=== PATIENT | male | born 1950 | race Caucasian/White ===

== ENCOUNTER 2024-10-03 12:59 | Outpatient (OUT) | payer MEDICARE, SELFPAY ==
--- NOTE | 2024-10-03 18:12 | P.WCHP_ITS ---
Wound Care H&P: HPI History of Present Illness Narrative: The patient is a 74-year-old gentleman with history of type 2 diabetes, last hemoglobin A1c was 7.0. He presents today for routine nail care. He has no complaints of pain in his feet at this time. Exam 2 Narrative: Exam Narrative: Derm: Skin is diffusely dry. Toenails 1 through 10 are elongated, thickened, and mycotic. No ulcerative or preulcerative lesions are noted. Vascular: DP and PT pulses are 2/4 bilaterally. Capillary refills less than 3 seconds bilaterally. Varicosities are present in both feet and ankles. Toes are cool to the touch. Digital hair is absent bilaterally. Neuro: Protective sensation is intact in 5/5 areas tested on each foot. Vibratory sensation is intact on the right and negative on the left. Deep tendon reflexes to the Achilles are absent bilaterally. Musculoskeletal: No gross deformity, no pain with palpation Assessment and Plan Assessment and Plan (1) Tinea unguium: (2) Nail dystrophy: (3) Disorder of nail due to another disorder: Plan Routine nail care performed. Follow-up in 3 months Acute Procedures Podiatry Nail Debridement Class B Findings Advanced trophic changes as evidenced by any three of the following: decreased hair growth and skin texture (thin or shiny) Class C Findings Claudication: No Temperature changes: Yes Edema: Yes Nail debridement paresthesia (abnormal spontaneous sensations in the feet): No Burning: No Qualifies If: Qualifiers If:: A patient qualifies for nail debridement if they have: 1 class A finding (Q7) 2 class B findings (Q8) OR 1 class B & 2 class C findings in addition to a primary condition (Q9) Nail Procedure Nail Procedure Time out: Yes Nail procedure: other (Toenail debridement 1 through 10) Number of affected nails: 10 Location (toes): left and right Procedure successful: Yes Patient tolerated procedure: well and no complications Additional comments: Toenails 1 through 10 were sharply debrided with nail nippers without incident
== END 2024-10-03 13:00 | disposition home or self-care (01) ==
LOC: WC 13:04
PROVIDERS: Visit Provider Physician Assistant
DX: B35.1 Tinea unguium (principal); L60.3 Nail dystrophy; E11.9 Type 2 diabetes mellitus without complications; L60.2 Onychogryphosis; L62 Nail disorders in diseases classified elsewhere
CPT/HCPCS: 11721

== ENCOUNTER 2025-01-02 13:57 | Outpatient (OUT) | payer MEDICARE, SELFPAY ==
--- OUTSIDE RECORDS SUMMARY | 2024-04-01 09:00 | XMS_ITS ---
Author Organization The [facility] in [place] Address [address] [place] [address] Care Team Providers Care Front Office Clerk Name Role Phone Taejessica John CASTELLANOS Primary Care Provider Unavail Mehnaz Lora Unavailable [phone] Allergies No Known Allergies REASON FOR VISIT nail care with Lesley Medications Medication SIG (Take, Route, Frequency, Duration) Notes Start Date End Date Status Simvastatin 40 MG 1 tablet in the even ing Orally Once a day Active Minocycline HCl 50 MG 1 capsule Orally O nce a day Active metFORMIN HCl 1000 MG 1 tablet with a me al Orally BID Active Lisinopril-hydroCHLOROthiaz claire 10-12.5 MG 1 tablet Orally Once a day Active Januvia 100 MG 1 tablet Orally Once a day Active Social History Tobacco Use: Social History Observation Description Date Details (start date - stop date) Never Smoker NA - NA Tobacco Use/Smoking Question Answer Notes Patient is a nonsmoker Vital Signs Temperature 98.4 degrees Fahrenheit 04/01/20 24 Heart Rate 82 /min 04/01/2024 Height 76 in 04/01/2024 Oximetry 98 % 04/01/2024 Encounters Encounter Location Date Provider Diagnosis [facility] (PODIATRY) [address] [place] [address] [place] [address] 04/01/2024 Mehnaz Horton Type 2 diabetes mellitus with unspecified complications E11.8 Assessments Encounter Date Diagnosis (ICD Code) Assessment Notes Treatment Notes Treatment Clinical Notes Section Notes 04/01/2024 Type 2 diabetes mellitus with unspecified complications (ICD-10 - E11.8) Plan Of Treatment No Information Progress Notes * Juan Antonio SCHNEIDERDOB:1950 (74 yo M)Acc No.[id number]:04/01/2024 Nurse Visit Patient: Juan Antonio OBRIEN Provider: Suzan Horton PA-C :1950 A ge:74 Y S ex:Male Date:04/01/2024 Address:[address], [place], [id number] Pcp:John Bosch, DO Check In:01:01 PM ESTCheck O ut:01:22 PM EST Subjective: * Chief Complaints: * n ail care with Lesley * HPI: G eneral: Patient in office today for nail care. Nails 1-10 were trimmed and filed down to his liking. States, nails already feel better . * Active Problem List E11.8 Type 2 diabetes bobby itus with unspecified complications Modified On:07/18/2023W/U Status:confirmed * Medical History: * Surgical History: r ight knee replacement 2022 * Hospitalization/Major Diagno stic Procedure: N o Hospitalization History. * Family History: declined. * Social History: T obacco Use: T obacco Use/Smoking P atient is a n onsmoker * Medications: T akingJanuvia(SITagliptin Phosphate) 100 MG Tablet 1 tablet Orally Once a day Lisinopril-hydroCHLOROthiazide 10-12.5 MG Tablet 1 tablet Orally Once a day metFORMIN HCl 1000 MG Tablet 1 tablet with a meal Orally BID Minocycline HCl 50 MG Capsule 1 capsule Orally Once a day Simvastatin 40 MG Tablet 1 tablet in the evening Orally Once a day Taking Januvia(SITagliptin Phosphate) 100 MG Tablet 1 tablet Orally Once a day Taking Lisinopril-hydroCHLOROthiazide 10-12.5 MG Tablet 1 tablet Orally Once a day Taking metFORMIN HCl 1000 MG Tablet 1 tablet with a meal Orally BID Taking Minocycline HCl 50 MG Capsule 1 capsule Orally Once a day Taking Simvastatin 40 MG Tablet 1 tablet in the evening Orally Once a day * Allergies: N .K.D.A.no[Allergies Verified] Objective: * Vitals: H t: 76 in, Temp:98.4F, HR:82/min, Pain scale:01-10, Oxygen sat %:98%, Ht-cm: 193.04 cm. Assessment: * Assessment: 1. T ype 2 diabetes mellitus with unspecified complications - E11.8 (Primary) Plan: * Treatment: * Procedure Codes: * * Sign off status: Completed Visit Status: Ignacio HK (Check Out) true * Provider: Suzan Horton PA-C Date: 1 06/01/2023 [facility]Falind[facility]/eTransmitting on: 0 01/02/2025 02:01 PM EDT History and Physical Notes * HPI (History of Present Illness) Category Sub-Category Detail Notes Category Not es General Patient in offi ce today for nail care. Nails 1-10 were trimmed and filed down to his liking. States, nails already feel better .
--- OUTSIDE RECORDS SUMMARY | 2024-07-04 09:00 | XMS_ITS ---
Author Organization The [facility] in [place] Address [address] [place] [address] Care Team Providers Care Guitar Repairer Name Role Phone Taejessica John CASTELLANOS Primary Care Provider Unavail able Mehnaz Horton Unavailable [phone] REASON FOR VISIT nail care for jaida Medications Medication SIG (Take, Route, Frequency, Duration) Notes Start Date End Date Status Januvia 100 MG 1 tablet Orally Once a day Active metFORMIN HCl 1000 MG 1 tablet with a me al Orally BID Active Lisinopril-hydroCHLOROthiaz claire 10-12.5 MG 1 tablet Orally Once a day Active Simvastatin 40 MG 1 tablet in the even ing Orally Once a day Active Minocycline HCl 50 MG 1 capsule Orally O nce a day Active Social History Tobacco Use: Social History Observation Description Date Details (start date - stop date) Never Smoker NA - NA Tobacco Use/Smoking Question Answer Notes Patient is a nonsmoker Vital Signs Temperature 98.2 degrees Fahrenheit 07/04/19 25 Heart Rate 78 /min 07/04/2024 Height 76 in 07/04/2024 Oximetry 99 % 07/04/2024 Encounters Encounter Location Date Provider Diagnosis [facility] (PODIATRY) [address] [place] [address] [place] [address] 07/04/2024 Mehnaz Horton Type 2 diabetes mellitus with unspecified complications E11.8 Assessments Encounter Date Diagnosis (ICD Code) Assessment Notes Treatment Notes Treatment Clinical Notes Section Notes 07/04/2024 Type 2 diabetes mellitus with unspecified complications (ICD-10 - E11.8) Plan Of Treatment No Information Progress Notes * Juan Antonio SCHNEIDERDOB:1950 (74 yo M)Acc No.[id number]:07/04/2024 Nurse Visit Patient: Juan Antonio OBRIEN Provider: Suzan Horton PA-C :1950 A ge:74 Y S ex:Male Date:07/04/2024 Address:[address], [place], [id number] Pcp:John Bosch, DO Check In:12:56 PM ESTCheck O ut:01:19 PM EST Subjective: * Chief Complaints: * N ail care for jaida * HPI: G eneral: Patient in office today for nail care. Nails 1-10 were trimmed and dremmled down to his liking. Nails were thickened and long. * Active Problem List E11.8 Type 2 [...] in the evening Orally Once a day Medication List reviewed and reconciled with the patientTaking Januvia(SITagliptin Phosphate) 100 MG Tablet 1 tablet Orally Once a day Taking Lisinopril-hydroCHLOROthiazide 10-12.5 MG Tablet 1 tablet Orally Once a day Taking metFORMIN HCl 1000 MG Tablet 1 tablet with a meal Orally BID Taking Minocycline HCl 50 MG Capsule 1 capsule Orally Once a day Taking Simvastatin 40 MG Tablet 1 tablet in the evening Orally Once a day Medication List reviewed and reconciled with the patient * Allergies: n o[Allergies Verified] Objective: * Vitals: H t: 76 in, Temp:98.2F, HR:78/min, Oxygen sat %:99%, Ht-cm: 193.04 cm. Assessment: * Assessment: 1. T ype 2 diabetes mellitus with unspecified complications - E11.8 (Primary) Plan: * Treatment: * Procedure Codes: * * Sign off status: Completed Visit Status: C HK (Check Out) true * Provider: Suzan Horton PA-C Date: 0 07/04/2024 [facility]/eTransmitting on: 0 01/02/2025 02:00 PM EDT History and Physical Notes * HPI (History of Present Illness) Category Sub-Category Detail Notes Category Not es General Patient in offi ce today for nail care. Nails 1-10 were trimmed and dremmled down to his liking. Nails were thickened and long.
--- OUTSIDE RECORDS SUMMARY | 2024-10-03 09:00 | XMS_ITS ---
Author Organization The [facility] in [place] Address [address] [place] [address] Care Team Providers Care Gas Fitter Apprentice Name Role Phone John Bosch DO Primary Care Provider Mehnaz Bearden Unavailable [phone] REASON FOR VISIT nail care Encounters Encounter Location Date Provider Diagnosis [facility] (PODIATRY) [address] [place] [address] [place] [address] 10/03/2024 Mehnaz Hortno Plan Of Treatment No Information Progress Notes * Juan Antonio SCHNEIDERDOB:1950 (74 yo M)Acc No.[id number]:10/03/2024 UNLOCKED PROGRESS NOTE Nurse Visit Patient: Juan Antonio OBRIEN Provider: Suzan Horton PA-C :1950 A ge:74 Y S ex:Male Date:10/03/2024 Address:[address], [facility] Pcp:John Bosch DO Subjective: * Chief Complaints: * 1 . Nail care. * Medical History: Objective: * Vitals: Assessment: Plan: * Treatment: * * Electronic signature of Rufino Horton PA-C on 01/02/2025 at 02:02 PM EDT Sign off status: Pending Visit Status: C ANC (Cancelled) * Provider: Suzan oHrton PA-C Date: 0 10/03/2024 Generated for Printi ng/Faxing/eTransmitting on: 0 01/02/2025 02:02 PM EDT
--- OUTSIDE RECORDS SUMMARY | 2025-01-02 14:00 | XMS_ITS | Encounter Summary ---
Author Organization [facility] Address [address] [place] [address] Phone Care Team Providers Care Belt Repairer Name Role Phone TaeJohn lopez Primary Care Provider +1- [phone] Pamela Weathers MD Unavailable Encounter Details Date Type Department Care Team (Late st Contact Info) Description 08/28/2024 Scanned Document [facility] [address] [place] [id number] Scanning, Generic Provider Social History Tobacco Use Types Packs/Day Years Used Date Smoking Tobacco: Never Assessed Sex and Gender Information Value Date Recorded Sex Assigned at Not on file Legal Sex Male 11:11 PM EST Gender Identity Not on file Sexual Orientation Not on file documented as of this encounter Plan of Treatment Upcoming Encounters Date Type Department Care Team (Latest Contact Info) Description 01/13/2025 1:00 PM EDT Office Visit [facility] [address] [facility] [address] [place] [address] [place] [address] [place] [address] 02/12/2025 12:00 PM EDT Hospital Encounter [facility] [address] [place] [phone] Pamela Weathers MD [address] [facility] Medical Office [place], [address] [place], [place] [id number] Syncope; Mobitz type 2 second degree heart block 02/12/2025 12:00 PM EDT - 02/12/2025 1:00 PM EDT Surgery [facility] [address] [place] [address] Pamela Weathers MD [address] [facility] Medical Office [facility], [address] [place] [address] PPM IMPLANT DUAL [70037 (CPT )] 03/28/2025 10:20 AM EDT Office Visit [facility] [address] [facility] [address] [place] [address] Pamela Weathers MD [address] [facility] Office [facility], [facility] [address] [place] [address] 06/12/2025 10:15 AM EST Office Visit [facility] [address] [facility] [address] [place] [address] Mal Lord MD [address] [facility] [address] [place] [address] documented as of this encounter Visit Diagnoses Not on filedocumented in this encounter Care Teams Belt Repairer Relationship Specialty Start Date End Date John Bosch DO [address] [facility] [place] [address] PCP - General Family Medicine 08/30/24 Pamela Weathers MD [address] [facility] Office [facility], [facility] [address] [place] [address] Registered Dietician Electrophysiology 10/24/24 documented as of this encounter
--- OUTSIDE RECORDS SUMMARY | 2025-01-02 14:00 | XMS_ITS | Encounter Summary ---
Author Organization [facility] Address [address] [place] [address] Phone Care Team Providers Care Information Assurance Engineer Name Role Phone TaeJohn lopez Primary Care Provider +1- [phone] Pamela Weathers MD Unavailable Encounter Details Date Type Department Care Team (Late st Contact Info) Description 08/30/2024 Scanned Document [facility] [address] [place] [phone] Scanning, Generic Provider Social History Tobacco Use [...] Description 01/13/2025 1:00 PM EDT Office Visit [facility] [address] [facility] [address] [place] [address] [place] [address] [place] [address] 02/12/2025 12:00 PM EDT Hospital Encounter [facility] [address] [place] [phone] Pamela Weathers MD [address] [facility] Medical Office [place], [address] [place], [place] [phone] Syncope; Mobitz type 2 second degree heart block 02/12/2025 12:00 PM EDT - 02/12/2025 1:00 PM EDT Surgery [facility] [address] [place] [facility] [place] [address] Pamela Weathers MD [address] [facility] Medical Office [facility], [address] [place] [address] PPM IMPLANT DUAL [[id number] (CPT )] 03/28/2025 10:20 AM EDT Office Visit [facility] [address] [facility] [address] [place] [address] Pamela Weathers MD [address] [facility] Office [facility], [facility] [address] [place] [address] 06/12/2025 10:15 AM EST Office Visit [facility] [address] [facility] [address] [place] [address] [place] Lord MD [address] [facility] [address] [place] [address] documented as of this encounter Visit Diagnoses Not on filedocumented in this encounter Care Teams Information Assurance Engineer Relationship Specialty Start Date End Date John Bosch DO [address] [facility] [place] [address] PCP - General Family Medicine 08/30/24 Pamela Weathers MD [address] [facility] Office [facility], [facility] [address] [place] [address] Library Media Technician Electrophysiology 10/24/24 documented as of this encounter
--- OUTSIDE RECORDS SUMMARY | 2025-01-02 14:01 | XMS_ITS | Clinical Summary ---
Author Organization [facility] Address [address] [place] [address] Phone Care Team Providers Care Director Strategic Account Management Name Role Phone Taejessica John Armando DO Primary Care Provider [phone] Pamela Weathers MD Unavailable Allergies No known active allergies Medications metFORMIN (Glucophage) 1,000 mg tablet 1 tablet (1,000 mg) 2 times daily (morning and late afternoon). 02/20/2024 Active pioglitazone (Actos) 15 mg tablet 1 tablet (15 mg) once daily. Active simvastatin (Zocor) 40 mg tablet Take 1 tablet (40 mg) by mouth once daily in the evening. Active Januvia 100 mg tablet 1 tablet (100 mg) once daily. Active lisinopriL-hydro chlorothiazide 10-12.5 mg tablet Take 1 tablet by mouth once daily. 02/20/2024 Active Active Problems Problem Noted Date Diagnosed Date Syncope 12/18/2024 Mobitz type 2 second degree heart block 12/19/19 25 Cough 11/14/2024 Atherosclerotic heart diseas e of [place] coronary artery without angina pectoris 11/14/2024 Agatston CAC score, >400 11/14/2024 Atrioventricular block, first degree 11/14/2024 Unspecified right bundle-branch block 11/14/2024 LVH (left ventricular hypertrophy) 11/14/2024 History of degenerative disc disease 11/14/2024 History of kidney stones 11/14/2024 History of surgery on arm 11/14/2024 Diastolic dysfunction, left ventricle 11/14/2024 Second degree heart block 10/03/2024 PVC (premature ventricular contraction) 10/04/19 25 Abnormal Holter exam 10/03/2024 Apnea 10/03/2024 Daytime somnolence 10/03/2024 Hypotension 09/05/2024 Syncope and collapse 09/05/2024 BMI 32.0-32.9,adult 09/05/2024 Past history of chewing tobacco use 09/05/2024 Dizziness 09/05/2024 Diabetes mellitus type II, non insulin dependent (Multi) 09/05/2024 Mixed hyperlipidemia 09/05/2024 Hx of right knee surgery 09/05/2024 Abnormal EKG 09/05/2024 Snoring 09/05/2024 Essential hypertension 09/05/2024 SOB (shortness of breath) on exertion 09/05/2024 Family history of colon cancer 09/05/2024 Resolved Problems Problem Noted Date Diagnosed Date Resolved Date Encounter for medication rev iew and counseling 10/29/2024 11/14/2024 Encounter to discuss treatment options 10/29/2024 11/14/2024 Encounter to establish care with new doctor 10/29/2024 11/14/2024 Encounter to establish care 09/05/2024 11/14/2024 Encounters Date Type Department Care Team Description 12/18/2024 11:00 AM EDT - 12/18/2024 12:30 PM EDT Surgery [address] [phone] Pamela Weathers MD EP Study [93229 (CPT )] 12/18/2024 8:52 AM EDT - 12/18/2024 4:30 PM EDT Hospital Encounter [address] [phone] Pamela Weathers MD Second degree heart block (Primary Dx); PVC (premature ventricular contraction); Abnormal Holter exam; Syncope and collapse Discharge Disposition: Home 12/18/2024 Prep for Procedure [address] [address] Elena Gamez, BLENDING MACHINE OPERATOR-FAST FOODS WORKER 12/18/2024 Prep for Procedure [address] [phone] Elena Gamez, BLENDING MACHINE OPERATOR-FAST FOODS WORKER Syncope (Primary Dx); Mobitz type 2 second degree heart block 12/18/2024 Orders Only [facility] [address] [facility] [address] [place] [address] Pamela Weathers MD Second degree heart block (Primary Dx) 12/18/2024 Travel 12/16/2024 Orders Only [facility] [address] [place] [address] Pamela Weathers MD 11/14/2024 10:00 AM EDT Office Visit [facility] [address] [facility] [address] [place] [address] Nahed Dickinson MD Syncope and collapse; Hypotension, unspecified hypotension type; Cough, unspecified type; Abnormal EKG; Atherosclerosis of [place] coronary artery of [place] heart without angina pectoris; Agatston CAC score, >400; Atrioventricular block, first degree; Unspecified right bundle-branch block; PVC (premature ventricular contraction); LVH (left ventricular hypertrophy); Diastolic dysfunction, left ventricle; Essential hypertension; Mixed hyperlipidemia; Diabetes mellitus type II, non insulin dependent (Multi); BMI 32.0-32.9,adult; Past history of chewing tobacco use; History of degenerative disc disease; History of kidney stones; History of surgery on arm; Syncope without other cardiovascular symptoms 11/14/2024 Travel 11/07/2024 Travel 10/29/2024 8:20 AM EDT Office Visit [facility] [address] [facility] [address] [place] [address] Pamela Weathers MD Second degree heart block (Primary Dx); PVC (premature ventricular contraction); Abnormal Holter exam; Mixed hyperlipidemia; Essential hypertension; BMI 32.0-32.9,adult; Syncope and collapse; History of tobacco use; Encounter for medication review and counseling; Encounter to discuss treatment options; Encounter to establish care with new doctor 10/29/2024 Travel 10/28/2024 Travel 10/27/2024 Travel 10/22/2024 4:34 PM EDT - 10/22/2024 11:59 PM EDT Hospital Encounter [address] [place] [phone] Encounter to establish care; Syncope and collapse; Hypotension, unspecified hypotension type; SOB (shortness of breath) on exertion; Essential hypertension; Mixed hyperlipidemia; Dizziness; Abnormal EKG; Snoring; Diabetes mellitus type II, non insulin dependent (Multi); Hx of right knee surgery; Family history of colon cancer; BMI 31.0-31.9,adult; History of tobacco use Discharge Disposition: Home 10/22/2024 Travel 10/21/2024 Travel 10/17/2024 Telephone [facility] [address] [facility] [address] [place] [address] Chrissy Rojas MA REFERRAL TO SLEEP MED. 10/09/[address] [address] Tamara Fajardo LPN Results 10/07/2024 Orders Only [facility] [address] [place] [address] Harjeet Lyn, 10/03/2024 10:00 AM EDT Office Visit [address] [address] Nahed Dickinson MD Syncope and collapse; Abnormal EKG; Second degree heart block; Hypotension, unspecified hypotension type; SOB (shortness of breath) on exertion; Essential hypertension; Daytime somnolence; Apnea; Mixed hyperlipidemia; Dizziness; Snoring; Diabetes mellitus type II, non insulin dependent (Multi); Hx of right knee surgery; Family history of colon cancer; PVC (premature ventricular contraction); Abnormal Holter exam; History of tobacco use; BMI 31.0-31.9,adult 10/03/2024 Telephone [facility] [address] [facility] [address] [place] [phone] Harjeet Lyn, 10/03/[address] [address] Barbara Barber LPN anesthesia 10/03/2024 Travel from Last 3 Months Immunizations Immunization Administration Dates Next Due Influenza, trivalent, adjuvanted 03/19/2024 Pneumococcal polysaccharide vaccine, 23-valent, age 2 years and older (PNEUMOVAX 23) 04/28/2015 Zoster vaccine, recombinant, adult (SHINGRIX) Family History Medical History Relation Name Comments Diabetes Father Pneumonia Father pacemaker Father Heart attack Mother Heart failure Mother Colon cancer Sister Relation Name Status Comments Father Mother Sister Social History Tobacco Use Types Packs/Day Years Used Date Smoking Tobacco: Never Smokeless Tobacco: Former Chew Comments:Quit in 1984 Alcohol Use Standard Drinks/Week Comments Yes 0 (1 standard drink = 0.6 oz pure alcohol) Maybe one or two beers per month Sex and Gender Information Value Date Recorded Sex Assigned at Not on file Legal Sex Male 11:11 PM EST Gender Identity Not on file Sexual Orientation Not on file Last Filed Vital Signs Vital Sign Reading Time Taken Comments Blood Pressure 171/79 12/18/2024 1:15 PM EDT Pulse 56 12/18/2024 1:15 PM EDT Temperature 36.2 C (97.2 F) 12/18/2024 9:16 AM EDT Respiratory Rate 18 12/18/2024 1:15 PM EDT Oxygen Saturation 99% 12/18/2024 11:56 AM EDT Inhaled Oxygen Concentration - - Weight 121 kg (267 lb 6.7 oz) 12/18/2024 9:16 AM EDT Height 193 cm (6' 4 ) 12/18/2024 9:16 AM EDT Body Mass Index 32.55 12/18/2024 9:16 AM EDT Plan of Treatment Upcoming Encounters Date Type Department Care Team (Latest Contact Info) Description 01/13/2025 1:00 PM EDT Office Visit [facility] [address] [place] [address] [place] [address] [place], [place] [id number] 02/12/2025 12:00 PM EDT Hospital Encounter [facility] [address] [place] [address] Pamela Weathers MD [address] [facility] Medical Office [place], [address] [place] [address] Syncope; Mobitz type 2 second degree heart block 02/12/2025 12:00 PM EDT - 02/12/2025 1:00 PM EDT Surgery [facility] [address] [place] [facility] [place] [address] Pamela Weathers MD [address] [facility] Medical Office [address] [place] [address] PPM IMPLANT DUAL [51660 (CPT )] 03/28/2025 10:20 AM EDT Office Visit [facility] [address] [facility] [address] [place] [address] Pamela Weathers MD [address] [facility] Office [facility], [address] [place] [address] 06/12/2025 10:15 AM EST Office Visit [facility] [address] [facility] [address] [place] [address] Nahed Dickinson MD [address] [facility] [address] [place] [address] Health Maintenance Due Date Last Done Comments CT Colonography 1950 Diabetes: Hemoglobin A1C 1950 Diabetes: Urine Protein Screening 1950 FIT-DNA (Cologuard) 1950 FIT 1950 Lipid Panel 1950 Medicare Annual Wellness Visit (AWV) 1950 Sigmoidoscopy 1950 MMR Vaccines (1 of 1 - Standard series) 1951 Diabetes: Retinopathy Screening 02/18/1960 Hepatitis C Screening 02/18/1968 DTaP/Tdap/Td Vaccines (1 - Tdap) 02/18/1972 RSV High Risk: (Elderly (60+) or Population) (1 - Risk 60-74 years 1-dose series) 2010 Pneumococcal Vaccine (2 of 2 - PCV) 04/28/2016 04/28/2015 Zoster Vaccines (2 of 2) 03/27/2019 01/30/2019 COVID-19 Vaccine ( season) 2024 03/02/2023, 10/11/2021, 03/29/2021, Additional history exists Influenza Vaccine (#1) 2025 03/19/2024 Colonoscopy 03/05/2034 03/05/2024 Colorectal Cancer Screening 03/05/2034 HIB Vaccines Aged Out No longer eligi ble based on patient's age to complete this topic HPV Vaccines Aged Out No longer eligi ble based on patient's age to complete this topic Hepatitis A Vaccines Aged Out No long er eligible based on patient's age to complete this topic Hepatitis B Vaccines Aged Out No long er eligible based on patient's age to complete this topic IPV Vaccines Aged Out No longer eligi ble based on patient's age to complete this topic Meningococcal Vaccine Aged Out No hugo priyank eligible based on patient's age to complete this topic Rotavirus Vaccines Aged Out No longer eligible based on patient's age to complete this topic Procedures Procedure Name Priority Date/Time Associated Diagnosis Comments EP STUDY Routine 12/18/2024 1:05 PM EDT Second degree heart block PVC (premature ventricular contraction) Abnormal Holter exam Syncope and collapse ECG 12-LEAD STAT 12/18/2024 9:40 AM EDT [facility] PROTHROMBIN TIME INR Routine 12/16/2024 8:07 AM EDT [facility] BASIC METABOLIC PANEL Routine 12/16/2024 8:07 AM EDT [facility] COMPLETE BLOOD COUNT AUTO DIFF Routine 12/16/2024 8:[address] CARDIAC SCORING WO IV CONTRAST Routine 10/22/2024 4:50 PM EDT Encounter to establish care Syncope and collapse Hypotension, unspecified hypotension type SOB (shortness of breath) on exertion Essential hypertension Mixed hyperlipidemia Dizziness Abnormal EKG Snoring Diabetes mellitus type II, non insulin dependent (Multi) Hx of right knee surgery Family history of colon cancer BMI 31.0-31.9,adult History of tobacco use [facility] LIPID PANEL Routine 10/07/2024 9:35 AM EDT [facility] CREATININE Routine 10/07/2024 9:35 AM EDT [facility] BLOOD UREA NITROGEN Routine 10/07/2024 9:35 AM EDT [facility] ELECTROLYTES Routine 10/07/2024 9:35 AM EDT [facility] COAGULATION PROFILE Routine 10/07/2024 9:35 AM EDT [facility] COMPLETE BLOOD COUNT AUTO DIFF Routine 10/07/2024 9:35 AM EDT ECG 12-LEAD Routine 10/03/2024 5:52 PM EDT Syncope and collapse SOB (shortness of breath) on exertion Abnormal Holter exam from Last 3 Months Results * EP STUDY (12/18/2024 1:05 PM EDT) Narrative [email or web address] - 12/18/2024 2:10 PM EDT .Electrophysiology Study Summary: Normal SA krys function. Abnormal AV krys function. Normal HIS Purkinje conduction. No VA conduction. No inducible SVT/VT in baseline state/in Isoproterenol state. Discharge: The patient left the EP laboratory in stable condition. Follow up: The patient will remain in the hospital overnight for telemetry monitoring and observation, with anticipated discharge on the following day. The patient should be alert for bleeding, swelling, or signs of infection. The patient should call the general matcher immediately if symptoms recur, or for any problems. The patient and family (friend via telephone with HIPAA consent) have been instructed accordingly. Recommend outpatient implantation of dual-chamber pacemaker. This was discussed in detail with the patient. All questions answered. Shared decision making performed. He agrees. Will order outpatient device implant and await preauthorization. Procedures: Complete electrophysiologic testing. CS recording. HIS recording. Vascular ultrasound guided access x 3. Patient history: Please refer to the detailed history and physical on the patient's medical chart. Procedure narrative: The risks, benefits, and alternatives to the procedure and sedation were explained to the patient, and informed consent was obtained. The patient was in the fasting state. A baseline ECG was recorded. Self-adhesive anterior-posterior defibrillation pads were applied. A ZOLL defibrillator was used for monitoring and the defibrillator waveform was set to biphasic. The patient was set up for continuous monitoring of surface 12 lead ECG and pulse oximetry. Blood pressure was monitored with automatic cuff measurements. The procedure was performed under IV conscious sedation. Bilateral groins were clipped, prepped with chlorhexidine, and draped in the usual sterile fashion. Local anesthesia: Subcutaneous tissues were infiltrated with Lidocaine 1% (10 ml) for local anesthesia in the right groin. Vascular ultrasound was used to guide vascular access. The right femoral was accessed x3 for insertion and positioning of diagnostic catheters using the modified Seldinger technique. Three sheaths were inserted. Electrophysiologic testing was performed with a multiple catheter technique. The catheters were placed under fluoroscopic guidance. A catheter was placed across the tricuspid valve to record the His bundle. A catheter was placed in the coronary sinus. Testing was done at baseline, without provocation. Measurements of basic intervals and refractory periods were obtained. Protocols included decremental pacing, burst pacing, and programmed stimulation. Stimuli were delivered at atrial, left atrial, right atrial, right ventricular apex, right ventricular outflow tract, and coronary sinus sites. HV 42 ms Corrected sinus node recovery time at PCL 1000 ms was 341 ms Wenckebach cycle length was 930 ms, associated with dizziness and feeling not right 2-1 AV block cycle length was 780 ms No tachycardia was induced with up to 3 extrastimuli from 2 pacing sites and at 2 pacing cycle lengths Sheaths were removed and hemostasis was obtained at the right femoral venous access sites with Vascade's. Manual compression was applied. Pressure dressing was applied. See signed procedural log and parameters. Vascular access and catheter properties: Entry site Sheath Locations Catheter Type Right femoral vein 6 Fr high RA , CS Librado Sci, quad new access Right femoral vein 6 Fr His-bundle (right side) Bots Sci, quad new access Right femoral vein 6 Fr RV apex and RV outflow tract Librado Sci, quad new access Complications: The patient tolerated the procedure without any complications or incident. us Pamela Weathers MD CV ELECTROPHYSIOLOGY PROCEDURES Final Result Performing Organization Address City/[facility]/ZIP Co de Phone Number [email or web address] * ECG 12 lead STAT (12/18/2024 9:40 AM EDT) Only the most recent of2 resultswithin the time period is included. Ventricular Rate 57 BPM MUSE Atrial Rate 57 BPM MUSE HI Interval 260 ms MUSE QRS Duration 124 ms MUSE QT Interval 472 ms MUSE QTC Calculation(Baze tt) 459 ms MUSE P [place] 71 degrees MUSE R [place] 33 degrees MUSE T [place] 44 degrees MUSE QRS Count 9 beats MUSE Q Onset 216 ms MUSE P Onset 86 ms MUSE P Offset 127 ms MUSE T Offset 452 ms MUSE QTC Fredericia 464 ms MUSE 12/18/2024 9:33 AM EDT 12/21/2024 11:05 AM EDT Narrative MUSE - 12/21/2024 11:06 AM EDT Sinus bradycardia with 1st degree AV block with Premature supraventricular complexes Right bundle branch block Abnormal ECG No previous ECGs available Confirmed by Nahed Dickinson ([id number]) on 12/21/2024 11:05:59 AM Procedure Note Nahed Dickinson MD - 12/21/2024 Sinus bradycardia with 1st degree AV block with Premature supraventricularcomplexes Right bundle branch block Abnormal ECG No previous ECGs available Confirmed by Nahed Dickinson ([id number]) on 12/21/2024 11:05:59 AM us Elena Winkler BLENDING MACHINE OPERATOR-FAST FOODS WORKER ECG ORDERABLES Final Re sult MUSE * (ABNORMAL) [facility] Complete Blood Count Auto Diff (12/16/2024 8:07 AM EDT) Only the most recent of2 resultswithin the time period is included. [facility] White Blood Count 4.4 4.1 - 10.5 [CFU]/mL [facility] Uncorrected WBC 4.4 4.1 - 10.5 10*3/uL [facility] Red Blood Count 4.21 3.90 - 5.60 10*6/uL [facility] Hemoglobin 13.5 13.0 - 17.0 g/dL [facility] Hematocrit 39.6 38.8 - 50.0 % [facility] Mean Corpuscular Volume 93.9 83.5 - 101 fL [facility] Mean Corpuscular Hemoglobin 32.0 27.5 - 35.2 pg [facility] Mean Corpuscular HGB Conc 34.0 32.5 - 35.6 g/dL [facility] Red Cell Distribution Width 12.8 12.0 - 14.8 % [facility] Platelet Count 144(L) 150 - 450 10*3/uL [facility] Mean Platelet Volume 10.0 6.6 - 10.1 fL [facility] Neutrophils % (Auto) 64.8 . % [facility] Lymphocytes % (Auto) 18.6 . % [facility] Monocytes % (Auto) 11.4 . % [facility] Eosinophils % (Auto) 4.9 . % [facility] Basophils % (Auto) 0.3 . % [facility] NRBC% 0.1 0 - 0.5 /100{WBC} [facility] Neutrophils # (Auto) 2.8 1.8 - 7.7 10*3/uL [facility] Lymphocytes # (Auto) 0.8(L) 1.00 - 4.8 10*3/uL [facility] Monocytes # (Auto) 0.5 0.0 - 0.8 10*3/uL [facility] Eosinophils # (Auto) 0.2 0.0 - 0.45 10*3/uL [facility] Basophils # (Auto) 0.0 0.0 - 0.2 10*3/uL [facility] Comment:PERFORMED BY:[place] [address] [address], [place] [phone] MEDICAL CARROLL CORMIER M.D. [facility] Whole blood specimen 12/16/2024 8:07 AM EDT Pamela Weathers MD LAB BLOOD ORDERABLES Final Resul t [facility] [address] [place] [address], [facility] [address] [place] [address] * (ABNORMAL) [facility] Basic Metabolic Panel (12/16/2024 8:07 AM EDT) [facility] Glucose 176(H) 70 - 100 mg/dL [facility] Comment:Random Glucose Refer ence Range is dependent on time and content of last meal. Glucose of more than 200 mg/dL in a nonstressed, ambulatory subject supports the diagnosis of Diabetes Mellitus. ADA recommended reference range NON-[facility] Blood Urea Nitrogen 18 7 - 25 mg/dL [facility] Creatinine 1.23 0.70 - 1.30 mg/dL [facility] ESTIMATED GFR >60.0 [facility] Sodium 138 136 - 145 mmol/L [facility] Potassium 4.4 3.5 - 5.1 mmol/L [facility] Chloride 104 98 - 107 mmol/L [facility] Carbon Dioxide 28.0 21.0 - 31.0 mmol/L [facility] Anion Gap 10.4 6.0 - 15.0 [facility] Calcium 8.8 8.6 - 10.3 mg/dL [facility] Comment:PERFORMED BY:[place] [address] [address] [place], [place] [phone] MEDICAL CARROLL CORMIER M.D. [facility] Plasma specimen or serum specimen or whole blood specimen 12/16/2024 8:07 AM EDT us Pamela Weathers MD LAB BLOOD ORDERABLES Final Resul t Performing Organization Address [facility] Co de Phone Number [facility] [address] [place] [address], [facility] [address] [place] [address] * [facility] Prothrombin Time INR (12/16/2024 8:07 AM EDT) [facility] Prothrombin Time 11.8 9.0 - 12.9 s [facility] Comment:A hematocrit value g reater than 55% may lead to inaccurate results in coagulation testing. Patients having hematocrit values >55% require a special collection tube for coagulation studies. Please contact the laboratory at [phone] for redraw instructions. NON-[facility] INR 1.0 [facility] Comment:INR Therapeutic Rang e A) Pre- and Peroperative OAT started two weeks before surgery. NOT HIP SURGERY: 1.5 - 2.5 HIP SURGERY: 2 - 3 B) Primary and secondary prevention of venous THROMBOSIS: 2 - 3 C) Active venous thrombosis, pulmonary embolism and prevention of recurrent venous thrombosis: 2 - 3 D) Prevention of arterial thromboembolism including patients with mechanical heart valves: 3 - 4.5PERFORMED BY:[facility] [place], [place] [address], [place] [phone] MEDICAL CARROLL CORMIER M.D. [facility] Platelet poor plasma specimen 12/16/2024 8:07 AM EDT us Pamela Weathers MD LAB BLOOD ORDERABLES Final Resul t Performing Organization Address City/[facility]/ZIP Co de Phone Number [facility] [address] [facility] [place] [address], [facility] [address] [place] [address] * CT cardiac scoring wo IV contrast (10/22/2024 4:50 PM EDT) Anatomical Region Laterality Modality Thoracic, Chest Computed Tomogra phy 10/22/2024 5:00 PM EDT 10/22/2024 6:27 PM EDT Addenda Addendum by Tino Ponce MD on 10/22/2024 6:26 PM EDT Interpreted By: Diego Ponce, ADDENDUM: Technical: The following is to serve as an over-read for an unenhanced cardiac CT, to evaluate the extravascular structures. Contiguous unenhanced CT sections are performed from level the juvenal to the upper abdomen. Findings: There is a 5 x 4 mm nodule in the right lower lobe (image 44). Calcified lymph nodes are identified in the subcarinal space and left hilum. There is no sign of pathologic lymph node enlargement. There is no pericardial or pleural effusion. Images through the upper abdomen are unremarkable. The visualized osseous structures are intact. Impression: 5 x 4 mm right lower lobe pulmonary nodule. Incidental Finding: A non-calcified pulmonary nodule/multiple non-calcified pulmonary nodules measuring less than 6 mm, likely benign. (-YCF-) Instructions: No further follow-up is required, however, if the patient has high risk factors for primary lung malignancy, follow-up noncontrast CT scan chest in 12 months may be obtained. (Ernie Gileshotho et al., Guidelines for management of incidental pulmonary nodules detected on CT images: From the Fleischner Society 2017, Radiology. 2017 Moisés;284 (1):228-243.) [email or web address] The remaining extravascular structures are unremarkable. Signed by: Diego Ponce 10/22/2024 6:26 PM -------- ORIGINAL REPORT -------- Dictation workstation: [id number] Impressions 10/22/2024 4:59 PM EDT 1. Coronary artery calcium score of 1033*. 2. IQBAL 80th percentile for age, gender, and race in asymptomatic patients. *Coronary Artery Agatston score Score risk Very low 1-99 Mildly increased 100-299 Moderately increased >300 Moderate to severely increased >800 Edilberto et al. JCCT 2016 (http://dx.doi.org/10.1016/j.jcct.2016.11.003) IQBAL Percentile In general, greater than 75th percentile for age, gender, and race is considered to be a higher relative risk and higher lifetime risk condition. Greater than 75th percentile=moderate to severely increased relative risk irrespective of the score. Advise using IQBAL 10 year CHD risk calculator below for better discrimination of risk. IQBAL 10-Year CHD Risk with Coronary Artery Calcification can be calcuate using link below https://www.iqbal-nhlbi.org/MESACHDRisk/MesaRiskScore/RiskScore.aspx Roxanna mehta al. JACC 2015 (http://dx.doi.org/10.1016/j.j acc.2015.08.035) Reading Signals Intelligence Analyst: Dr. Diego Zepeda, Date: 10/22/2024 4:58 pm Signed by: Diego Zepeda 10/22/2024 4:59 PM Dictation workstation: [id number] Narrative 10/22/2024 4:59 PM EDT Interpreted By: Diego Zepeda, STUDY: CT CARDIAC SCORING WO IV CONTRAST; 10/22/2024 4:50 pm INDICATION: Signs/Symptoms:screening for cad, hx hyperlipidemia. COMPARISON: None. ACCESSION NUMBER(S): [id number] ORDERING CLINICIAN: NAHED DICKINSON TECHNIQUE: Using prospective ECG gating, CT scan of the coronary arteries was performed without intravenous contrast. Coronary calcium scoring was performed according to the method of Agatston. CT Dose-Length Product (DLP): 93.7 mGy*cm CT Dose Reduction Employed: Yes, prospective gating, iterative reconstruction. FINDINGS: The score and distribution of calcium in the coronary arteries is as follows: LM 0 LAD 566 LCx 152 RCA 315 Total 1033 The visualized ascending thoracic aorta measures 3.7 cm in diameter. The heart is normal in size. No pericardial effusion is present. The main pulmonary artery, right and left pulmonary artery are normal in size. Procedure Note Diego Zepeda DO / Tino Ponce MD - 10/22/2024 Interpreted By: Diego Zepeda, STUDY: CT CARDIAC SCORING WO IV CONTRAST; 10/22/2024 4:50 pm INDICATION: Signs/Symptoms:screening for cad, hx hyperlipidemia. COMPARISON: None. ACCESSION NUMBER(S): [id number] ORDERING CLINICIAN: NAHED DICKINSON TECHNIQUE: Using prospective ECG gating, CT scan of the coronary arteries was performed without intravenous contrast. Coronary calcium scoring was performed according to the method of Agatston. CT Dose-Length Product (DLP): 93.7 mGy*cm CT Dose Reduction Employed: Yes, prospective gating, iterative reconstruction. FINDINGS: The score and distribution of calcium in the coronary arteries is as follows: LM 0 LAD 566 LCx 152 RCA 315 Total 1033 The visualized ascending thoracic aorta measures 3.7 cm in diameter. The heart is normal in size. No pericardial effusion is present. The main pulmonary artery, right and left pulmonary artery are normal in size. IMPRESSION: 1. Coronary artery calcium score of 1033*. 2. IQBAL 80th percentile for age, gender, and race in asymptomatic patients. *Coronary Artery Agatston score Score risk Very low 1-99 Mildly increased 100-299 Moderately increased >300 Moderate to severely increased >800 Edilberto et al. JCCT 2016 (http://dx.doi.org/10.1016/j.jcct.2016.11.003) IQBAL Percentile In general, greater than 75th percentile for age, gender, and race is considered to be a higher relative risk and higher lifetime risk condition. Greater than 75th percentile=moderate to severely increased relative risk irrespective of the score. Advise using IQBAL 10 year CHD risk calculator below for better discrimination of risk. IQBAL 10-Year CHD Risk with Coronary Artery Calcification can be calcuate using link below https://www.iqbal-nhlbi.org/MESACHDRisk/MesaRiskScore/RiskScore.aspx Roxanna mehta al. JACC 2015 (http://dx.doi.org/10.1016/j.j acc.2015.08.035) Reading Signals Intelligence Analyst: Dr. Deigo Zepeda, Date: 10/22/2024 4:58 pm Signed by: Diego Zepeda 10/22/2024 4:59 PM Dictation workstation: [id number] us Nahed Dickinson MD [facility]EDURES Edited Result - Final * (ABNORMAL) NON- HIE Blood Urea Nitrogen (10/07/2024 9:35 AM EDT) NON-[facility] HIE Blood Urea Nitrogen 31(H) 7 - 25 mg/dL [facility] Plasma specimen or serum specimen or whole blood specimen 10/07/2024 9:35 AM EDT Harjeet Lyn DO LAB BLOOD ORDERABLES Final Result [facility] [address] [place] [address], [facility] [address] [place] [id number] * (ABNORMAL) NON-[facility] HIE Lipid Panel (10/07/2024 9:35 AM EDT) NON-[facility] HIE Cholesterol 121(L) 140 - 200 mg/dL [facility] Comment:Chol less than 200 m g/dl low risk Chol 201-239 mg/dl borderline risk Chol 240 mg/dl and greater high risk NON-UH HIE HDL Cholesterol 51 23 - 92 mg/dL [facility] Comment:HDL CHOL ATP-III CLA SSIFICATION Cardiovascular Risk HDL > or equal to 60 mg/dL LOW HDL < 40 mg/dL HIGH NON-UH HIE Triglyceride w/Reflex 53 0 - 149 mg/dL [facility] Comment:TRIG ATP III CLASSIF ICATION TRIG less than 150 mg/dL Normal TRIG 150-199 mg/dL Borderline high TRIG 200-500 mg/dL High TRIG greater than 500 mg/dL Very high Standard traceable to the Center for Disease Conrtrol and Prevention (CDC) test method. NON-UH HIE LDL Cholesterol,Calcula stef 59 0 - 100 mg/dL [facility] Comment:LDL ATP III CLASSIFI CATION LDL less than 100 mg/dL Optimal LDL 100-129 mg/dL Near or above optimal LDL 130-159 mg/dL Borderline high LDL 160-189 mg/dL High LDL greater than 189 mg/dL Very high NON-UH HIE VLDL CHOLESTEROL 10 mg/dL [facility] NON-[facility] HIE Chol/HDL Ratio 2.4 <5.0 [facility] Comment:PERFORMED BY:[facility] [place], [place] [id number] MEDICAL DIRECTORSOLOMON CHRISTENSEN M.D. [facility] Plasma specimen or serum specimen or whole blood specimen 10/07/2024 9:35 AM EDT Harjeet Lyn DO LAB BLOOD ORDERABLES Final Result Performing Organization Address City/[facility]/ZIP Co de Phone Number [facility] [address] [place] [address], [facility] [address] [place] [address] * NON-[facility] HIE Electrolytes (10/07/2024 9:35 AM EDT) NON-[facility] HIE Sodium 139 136 - 145 mmol/L [facility] NON-[facility] HIE Potassium 4.2 3.5 - 5.1 mmol/L [facility] NON-[facility] HIE Chloride 107 98 - 107 mmol/L [facility] NON-[facility] HIE Carbon Dioxide 25.0 21.0 - 31.0 mmol/L [facility] NON-[facility] HIE Anion Gap 11.2 6.0 - 15.0 meq/L [facility] Plasma specimen or serum specimen or whole blood specimen 10/07/2024 9:35 AM EDT Harjeet Lyn DO LAB BLOOD ORDERABLES Final Result Performing Organization Address City/[facility]/ZIP Co de Phone Number [facility] [address] [place] [address], [facility] [address] [place] [address] * (ABNORMAL) NON-UH HIE Creatinine (10/07/2024 9:35 AM EDT) NON-[facility] HIE Creatinine 1.34(H) 0.70 - 1.30 mg/dL [facility] NON-[facility] HIE ESTIMATED GFR 55.588 mL/Min [facility] Plasma specimen or serum specimen or whole blood specimen 10/07/2024 9:35 AM EDT Harjeet Lyn DO LAB BLOOD ORDERABLES Final Result Performing Organization Address City/[facility]/ZIP Co de Phone Number [facility] [address] [place] [address], [facility] [address] [place] [address] * NON-UH HIE Coagulation Profile (10/07/2024 9:35 AM EDT) NON-[facility] HIE Prothrombin Time 12.0 9.0 - 12.9 s [facility] Comment:A hematocrit value g reater than 55% may lead to inaccurate results in coagulation testing. Patients having hematocrit values >55% require a special collection tube for coagulation studies. Please contact the laboratory at [phone] for redraw instructions. NON-UH HIE INR 1.1 [facility] Comment:INR Therapeutic Rang e A) Pre- and Peroperative OAT started two weeks before surgery. NOT HIP SURGERY: 1.5 - 2.5 HIP SURGERY: 2 - 3 B) Primary and secondary prevention of venous THROMBOSIS: 2 - 3 C) Active venous thrombosis, pulmonary embolism and prevention of recurrent venous thrombosis: 2 - 3 D) Prevention of arterial thromboembolism including patients with mechanical heart valves: 3 - 4.5 NON-UH HIE Partial Thromboplastin Time 31.5 25.1 - 36.5 s [facility] Comment:A hematocrit value g reater than 55% may lead to inaccurate results in coagulation testing. Patients having hematocrit values >55% require a special collection tube for coagulation studies. Please contact the laboratory at [phone] for redraw instructions.PERFORMED BY:[facility] [place] [id number] MEDICAL DIRECTORSOLOMON CHRISTENSEN M.D. [facility] Platelet poor plasma specimen 10/07/2024 9:35 AM EDT Harjeet Lyn DO LAB BLOOD ORDERABLES Final Result [facility] [address] [place] [address], [facility] [address] [place] [address] from Last 3 Months Insurance MEDICARE PART A AND B [facility] MEDICARE PART A AND B [facility] Advance Directives For more information, please contact: [phone] (Available ) * Full Code (Latest Code Status on File) Date Activated Date Inactivated Comments 12/18/2024 8:57 AM Question Answer Comments Plan of Care: Code Status Discussion Not Compl eted Decision Maker: Provider Rationale: Patient condition does not warra nt discussion Care Teams Director Strategic Account Management Relationship Specialty Start Date End Date John Bosch DO [facility] [place] [address] PCP - General Family Medicine 08/30/24 Pamela Weathers MD [address] [facility] [address], [address] [place] [address] Signals Intelligence Analyst Electrophysiology 10/24/24
--- OUTSIDE RECORDS SUMMARY | 2025-01-02 14:01 | XMS_ITS | Encounter Summary ---
Author Organization [facility] Address [address] [place] [address] Phone Care Team Providers Care Biomedical Equipment Support Specialist Name Role Phone Taejessica John Armando DO Primary Care Provider +1- [phone] Pamela Weathers MD Unavailable Encounter Details Date Type Department Care Team (Late st Contact Info) Description 12/18/2024 Prep for Procedure [facility] [address] [place] [address] Elena Gamez, MANAGER SMALL BUSINESS-SAND CASTER [address] [facility] [address], [address] [place], [place] [id number] Social History Tobacco Use Types Packs/Day Years [...] on file documented as of this encounter Functional Status * Calculated C-SSRS Risk Score (Lifetime/Recent) Answer Date of Assessment Author No Risk Indicated 12/18/2024 9:06 AM Hanna Barrios, JARED * [place] Suicide Severity Rating Scale (Screener/Recent Self-Report) Question Answer Date of Assessment Author 1. Wish to be (Past 1 Month) No 025 9:06 AM Hanna Barrios, RN 2. Non-Specific Active Suici linden Thoughts (Past 1 Month) No 12/18/2024 9:06 AM EDT Hanna Melo, RN 6. Suicidal Behavior (Lifetime) No 9:06 AM EDT Hanna Melo, RN documented as of this encounter Plan of Treatment Upcoming Encounters Date Type Department Care Team (Latest Contact Info) Description 01/13/2025 1:00 PM EDT Office Visit [facility] [address] [facility] [address] [place] [address] [place] [address] [place] [address] 02/12/2025 12:00 PM EDT Hospital Encounter [facility] [address] [place] [address] Pamela Weathers MD [address] [facility], [facility] [address] [place] [address] Syncope; Mobitz type 2 second degree heart block 02/12/2025 12:00 PM EDT - 02/12/2025 1:00 PM EDT Surgery [facility] [address] [place] [address] Pamela Weathers MD [address] [facility], [facility] [address] [place] [address] PPM IMPLANT DUAL [[id number] (CPT )] 03/28/2025 10:20 AM EDT Office Visit [facility] [address] [facility] [address] [place] [address] Pamela Weathers MD [address] [facility], [facility] [address] [place] [address] 06/12/2025 10:15 AM EST Office Visit [facility] [address] [facility] [address] [place] [address] Mal Lord MD [address] [facility] [address] [place] [address] documented as of this encounter Visit Diagnoses Not on filedocumented in this encounter Care Teams Biomedical Equipment Support Specialist Relationship Specialty Start Date End Date John Bosch DO [address] [facility] [place] [address] PCP - General Family Medicine 08/30/24 Pamela Weathers MD [address] [facility] [address] [place], [place] [phone] Rehab Tech Electrophysiology 10/24/24 documented as of this encounter
--- OUTSIDE RECORDS SUMMARY | 2025-01-02 14:02 | XMS_ITS | Clinical Summary ---
Author Organization [facility] Address [address] [place] [address] Care Team Providers Care Hospitality Recruiter Name Role Phone Unavailable Primary Care Provider Unavailabl e Social History Tobacco Use Types Packs/Day Years Used Date Smoking Tobacco: Never Assessed Sex and Gender Information Value Date Recorded Sex Assigned at Not on file Legal Sex Male 5:24 AM EST Gender Identity Not on file Sexual Orientation Not on file Plan of Treatment Health Maintenance Due Date Last Done Comments HEPATITIS C VIRUS SCREENING 1950 TETANUS 1950 TDAP (ADULT) 1969 LIPID SCREENING 1990 COLORECTAL CANCER SCREENING DISCUSSION 1995 PNEUMOCOCCAL VACCINE SERIES (1 of 1 - PCV) 02/18/2000 ZOSTER (SHINGLES) VACCINE (1 of 2) 02/18/2000 ABDOMINAL AORTIC ANEURYSM HI GH RISK SCREEN 2015 COVID-19 VACCINE ( - 2023-2 5 season) 2024 INFLUENZA VACCINE (#1) 2025 RSV VACCINE (1 - 1-dose 75+ series) 2025 HEP B VACCINE Aged Out No longer anabell ladd based on patient's age to complete this topic
--- OUTSIDE RECORDS SUMMARY | 2025-01-02 14:02 | XMS_ITS | Patient Health Record ---
Author Organization [facility] Address [address] [place] [address] Care Team Providers Care Evaporator Operator Molasses Name Role Phone Taejessica CASTELLANOSJohn Primary Care Provider Unavail able Mehnaz Horton Unavailable [phone] Allergies No Known Allergies Reason For Referral No Information Medications Medication SIG (Take, Route, Frequency, Duration) [...] Question Answer Notes Patient is a nonsmoker Problems Problem Type SNOMED Code ICD Code Onset Dates Problem Status W/U Status Risk Notes Problem [id number] Type 2 diabetes mellitus with unspecified complications (E11.8) Active confirmed Vital Signs Heart Rate 78 /min 07/04/2024 Temperature 98.2 degrees Fahrenheit 07/04/2024 Oximetry 99 % 07/04/2024 Height 76 in 07/04/2024 Encounters Encounter Location Date Provider Diagnosis [facility] [address] [place], [place] [address] [address] 04/01/2024 Mehnaz Horton Type 2 diabetes mellitus with unspecified complications E11.8 [facility] [address] [place], [place] [address] [address] 07/04/2024 Mehnaz Horton Type 2 diabetes mellitus with unspecified complications E11.8 Assessments Encounter Date Diagnosis (ICD Code) Assessment Notes Treatment Notes Treatment Clinical Notes Section Notes 04/01/2024 Type 2 diabetes mellitus with unspecified complications (ICD-10 - E11.8) 07/04/2024 Type 2 diabetes mellitus with unspecified complications (ICD-10 - E11.8) Plan Of Treatment No Information Insurance Providers Payer Name Payer Address Payer Phone Subscriber Number Group Number Insured Name Patient Relationship to Insured Coverage Start Date Coverage End Date MEDICARE [place] [address] [address] [id number] Juan Antonio Peñaloza Self - patient is the insured 7 [employer] SENIOR SUPPLEMENTAL INSURANCE [address] [address] [place] [address] [id number] Juan Antonio Peñaloza Self - patient is the insured 0 Medical (General) History Medical History History ICD Code Arthritis diabetes mellitus hypertension hyperlipidemia joint replacement Surgical History Surgery Date(Month/Year) right knee replacement 2022
--- OUTSIDE RECORDS SUMMARY | 2025-01-02 14:02 | XMS_ITS | Encounter Summary ---
Author Organization [facility] Address [address] [place] [address] Phone Care Team Providers Care Natural Foods Clerk Name Role Phone John Bosch DO Primary Care Provider +1- [phone] Pamela Weathers MD Unavailable Encounter Details Date Type Department Care Team (Late st Contact Info) Description 09/20/2024 Scanned Document [facility] [address] [place] [address] Scanning, Generic Provider Social History Tobacco Use Types Packs/Day Years Used Date Smoking Tobacco: Never Smokeless Tobacco: Former Chew Alcohol Use Standard Drinks/Week Comments Yes 0 (1 standard drink = 0.6 oz pur e alcohol) occasional Sex and Gender Information Value Date Recorded Sex Assigned at Not on file Legal Sex Male 11:11 PM EST Gender Identity Not on file Sexual Orientation Not on file COVID-19 Exposure Response Date Recorded In the last 10 days, have yo u been in contact with someone who was confirmed or suspected to have Coronavirus/COVID-19? No / Unsure 09/12/2024 12:59 PM EDT documented as of this encounter Plan of Treatment Upcoming Encounters Date Type Department Care Team (Latest Contact Info) Description 01/13/2025 1:00 PM EDT Office Visit [address] [place] [address] [place] [address] [place] [id number] 02/12/2025 12:00 PM EDT Hospital Encounter [facility] [address] [facility] [place] [address] Pamela Weathers MD [address] [facility] Office [facility] [address] [place] [address] Syncope; Mobitz type 2 second degree heart block 02/12/2025 12:00 PM EDT - 02/12/2025 1:00 PM EDT Surgery [facility] [address] [facility] [place] [address] Pamela Weathers MD [address] [facility] Office [facility], [facility] [address] [place] [address] PPM IMPLANT DUAL [[id number] (CPT )] 03/28/2025 10:20 AM EDT Office Visit [facility] [address] [facility] [address] [place] [address] Pamela Weathers MD [address] [facility] Office [facility], [facility] [address] [place] [address] 06/12/2025 10:15 AM EST Office Visit [facility] [address] [facility] [address] [place] [address] Mal Lord MD [address] [facility] [address] [place] [address] Scheduled Orders Name Type Priority Associated Diagnoses Orde r Schedule Ultrasound- OnBase Scan Imaging O rdered: 09/20/2024 documented as of this encounter Procedures Procedure Name Priority Date/Time Associated Diagnosis Comments OUTSIDE IMAGING SCAN 09/20/2024 ECHOCARDIOGRAM 09/20/2024 documented in this encounter Results * Echocardiogram (09/20/2024) Narrative 09/20/2024 Ordered by an unspecified provider. us Generic Provider Scanning CV ECHO PROCEDURES Fin al Result * OUTSIDE IMAGING SCAN (09/20/2024) Anatomical Region Laterality Modality Other Narrative 09/20/2024 Ordered by an unspecified provider. us Generic Provider Scanning OUTSIDE SCAN Final Result documented in this encounter Visit Diagnoses Not on filedocumented in this encounter Additional Health Concerns Assessment Noted Time A fall risk assessment has been complete d for the patient 09/05/2024 9:20 AM EDT documented as of this encounter Care Teams Natural Foods Clerk Relationship Specialty Start Date End Date John Bosch DO [address] [facility] [place] [address] PCP - General Family Medicine 08/30/24 Pamela Weathers MD [address] [facility] Medical Office [facility], [address] [place] [address] Track Maintainer Electrophysiology 10/24/24 documented as of this encounter
--- OUTSIDE RECORDS SUMMARY | 2025-01-02 14:02 | XMS_ITS | Encounter Summary ---
Author Organization [facility] Address [address] [address] Phone Care Team Providers Care Cross Cut Saw Operator Name Role Phone John Bosch DO Primary Care Provider +1- [phone] Pamela Weathers MD Unavailable Encounter Details Date Type Department Care Team (Late st Contact Info) Description 09/30/2024 Scanned Document [facility] [address] [place] [address] Scanning, Generic Provider Social History Tobacco Use [...] suspected to have Coronavirus/COVID-19? No / Unsure 10/03/2024 9:54 AM EDT documented as of this encounter Plan of Treatment Upcoming Encounters Date Type Department Care Team (Latest Contact Info) Description 01/13/2025 1:00 PM EDT Office Visit [address] [place] [address] [place] [address] [place] [phone] 02/12/2025 12:00 PM EDT Hospital Encounter [facility] [address] [place] [facility] [place] [address] Pamela Weathers MD [address] [facility] Medical Office [facility], [facility] [address] [place] [address] Syncope; Mobitz type 2 second degree heart block 02/12/2025 12:00 PM EDT - 02/12/2025 1:00 PM EDT Surgery [facility] [address] [place] [facility] [place] [address] Pamela Weathers MD [address] [facility] Office [facility], [facility] [address] [place] [address] PPM IMPLANT DUAL [[id number] (CPT )] 03/28/2025 10:20 AM EDT Office Visit [facility] [address] [facility] [address] [place] [address] Pamela Weathers MD [address] [facility] Office [facility], [facility] [address] [place] [address] 06/12/2025 10:15 AM EST Office Visit [facility] [address] [facility] [address] [place] [address] Mal Lord MD [address] [facility] [address] [place] [address] documented as of this encounter Visit Diagnoses Not on filedocumented in this encounter Additional Health Concerns Assessment Noted Time A fall risk assessment has been complete d for the patient 09/05/2024 9:20 AM EDT documented as of this encounter Care Teams Cross Cut Saw Operator Relationship Specialty Start Date End Date John Bosch DO [address] [place] [address] PCP - General Family Medicine 08/30/24 Pamela Weathers MD [address] [facility] [address] [place] [id number] Meal Attendant Electrophysiology 10/24/24 documented as of this encounter
--- NOTE | 2025-01-02 14:20 | PM.WCHP ---
Wound Care H&P: HPI History of Present Illness Narrative: The patient is a 74-year-old gentleman with history of type 2 diabetes. He presents today for routine nail care. He has no complaints of pain in his feet at this time. He states he has been using a CGM to keep a close eye on his blood sugars and has learned a lot since he started using it. Exam Narrative: Exam Narrative: Derm: Skin is diffusely dry. Toenails 1 through 10 are elongated, thickened, and mycotic. No ulcerative or preulcerative lesions are noted. Vascular: DP and PT pulses are 2/4 bilaterally. Capillary refills less than 3 seconds bilaterally. Varicosities are present in both feet and ankles. Toes are cool to the touch. Digital hair is absent bilaterally. Neuro: Protective sensation is intact in 5/5 areas tested on each foot. Vibratory sensation is intact on the right and negative on the left. Deep tendon reflexes to the Achilles are absent bilaterally. Musculoskeletal: No gross deformity, no pain with palpation Assessment and Plan Assessment and Plan (1) Tinea unguium: (2) Nail dystrophy: (3) Disorder of nail due to another disorder: Plan Routine nail care performed. Follow-up in 3 months Acute Procedures Podiatry Nail Debridement Class B Findings Advanced trophic changes as evidenced by any three of the following: decreased hair growth and skin texture (thin or shiny) Class C Findings Claudication: No Temperature changes: Yes Edema: Yes Nail debridement paresthesia (abnormal spontaneous sensations in the feet): No Burning: No Qualifies If: Qualifiers If:: A patient qualifies for nail debridement if they have: 1 class A finding (Q7) 2 class B findings (Q8) OR 1 class B & 2 class C findings in addition to a primary condition (Q9) Nail Procedure Nail Procedure Time out: Yes Nail procedure: other (Toenail debridement 1 through 10) Number of affected nails: 10 Location (toes): left and right Procedure successful: Yes Patient tolerated procedure: well and no complications Additional comments: Toenails 1 through 10 were sharply debrided with nail nippers without incident
== END 2025-01-02 13:58 | disposition home or self-care (01) ==
LOC: WC 13:58
PROVIDERS: Visit Provider Physician Assistant
DX: B35.1 Tinea unguium (principal); L60.8 Other nail disorders; L60.2 Onychogryphosis; I83.899 Varicose veins of unspecified lower extremity with other complications; L85.3 Xerosis cutis; E11.9 Type 2 diabetes mellitus without complications; R20.2 Paresthesia of skin; L60.3 Nail dystrophy
CPT/HCPCS: 11721

== ENCOUNTER 2025-03-06 13:19 | Outpatient (OUT) | payer MEDICARE, SELFPAY ==
--- NOTE | 2025-03-06 13:50 | PM.WCHP ---
Wound Care H&P: HPI History of Present Illness Narrative: The patient is a 74-year-old gentleman with history of type 2 diabetes. He presents today for routine nail care. He complains of pain in the toenails which he attributes to them being long. Exam Narrative: Exam Narrative: Derm: Skin is diffusely dry. Toenails 1 through 10 are elongated, thickened, and mycotic. No ulcerative or preulcerative lesions are noted. Vascular: DP and PT pulses are 2/4 bilaterally. Capillary refills less than 3 seconds bilaterally. Varicosities are present in both feet and ankles. Toes are cool to the touch. Digital hair is absent bilaterally. Neuro: Protective sensation is intact in 5/5 areas tested on each foot. Vibratory sensation is intact on the right and negative on the left. Deep tendon reflexes to the Achilles are absent bilaterally. Musculoskeletal: No gross deformity, no pain with palpation Assessment and Plan Assessment and Plan (1) Tinea unguium: (2) Nail dystrophy: (3) Disorder of nail due to another disorder: (4) Pain around toenail: Plan Routine nail care performed. Follow-up in 3 months Acute Procedures Podiatry Nail Debridement Class B Findings Advanced trophic changes as evidenced by any three of the following: decreased hair growth and skin texture (thin or shiny) Class C Findings Claudication: No Temperature changes: Yes Edema: Yes Nail debridement paresthesia (abnormal spontaneous sensations in the feet): No Burning: No Qualifies If: Qualifiers If:: A patient qualifies for nail debridement if they have: 1 class A finding (Q7) 2 class B findings (Q8) OR 1 class B & 2 class C findings in addition to a primary condition (Q9) Nail Procedure Nail Procedure Time out: Yes Nail procedure: other (Toenail debridement 1 through 10) Number of affected nails: 10 Location (toes): left and right Procedure successful: Yes Patient tolerated procedure: well and no complications Additional comments: Toenails 1 through 10 were sharply debrided with nail nippers without incident
== END 2025-03-06 13:20 | disposition home or self-care (01) ==
LOC: WC 13:19
PROVIDERS: Visit Provider Physician Assistant
DX: B35.1 Tinea unguium (principal); L60.3 Nail dystrophy; L60.8 Other nail disorders; R60.0 Localized edema; M79.675 Pain in left toe(s); M79.674 Pain in right toe(s)
CPT/HCPCS: 11721

== ENCOUNTER 2025-05-08 13:23 | Outpatient (OUT) | payer MEDICARE, SELFPAY ==
--- NOTE | 2025-05-08 13:59 | PM.WCHP ---
Wound Care H&P: HPI History of Present Illness Narrative: The patient is a 75-year-old gentleman with history of type 2 diabetes. He presents today for routine nail care. He complains of pain in the toenails which he attributes to them being long. Exam Narrative: Exam Narrative: Derm: Skin is diffusely dry. Toenails 1 through 10 are elongated, thickened, and mycotic. No ulcerative or preulcerative lesions are noted. Vascular: DP and PT pulses are 2/4 bilaterally. Capillary refills less than 3 seconds bilaterally. Varicosities are present in both feet and ankles. Toes are cool to the touch. Digital hair is absent bilaterally. Neuro: Protective sensation is intact in 5/5 areas tested on each foot. Vibratory sensation is intact on the right and negative on the left. Deep tendon reflexes to the Achilles are absent bilaterally. Musculoskeletal: No gross deformity, no pain with palpation Assessment and Plan Assessment and Plan (1) Tinea unguium: (2) Nail dystrophy: (3) Disorder of nail due to another disorder: (4) Pain around toenail: Plan Routine nail care performed. Follow-up in 3 months Acute Procedures Podiatry Nail Debridement Class B Findings Advanced trophic changes as evidenced by any three of the following: decreased hair growth and skin texture (thin or shiny) Class C Findings Claudication: No Temperature changes: Yes Edema: Yes Nail debridement paresthesia (abnormal spontaneous sensations in the feet): No Burning: No Qualifies If: Qualifiers If:: A patient qualifies for nail debridement if they have: 1 class A finding (Q7) 2 class B findings (Q8) OR 1 class B & 2 class C findings in addition to a primary condition (Q9) Nail Procedure Nail Procedure Time out: Yes Nail procedure: other (Toenail debridement 1 through 10) Number of affected nails: 10 Location (toes): left and right Procedure successful: Yes Patient tolerated procedure: well and no complications Additional comments: Toenails 1 through 10 were sharply debrided with nail nippers without incident
== END 2025-05-08 13:24 | disposition home or self-care (01) ==
LOC: WC 13:24
PROVIDERS: Visit Provider Physician Assistant
DX: B35.1 Tinea unguium (principal); L60.3 Nail dystrophy; L60.8 Other nail disorders; M79.675 Pain in left toe(s); M79.674 Pain in right toe(s)
CPT/HCPCS: 11721